=== PATIENT | female | born 2000 | race Hispanic/Latino ===

== ENCOUNTER 2020-09-13 01:53 | Emergency (ER) | payer BC ==
[~2020-09-13] VITALS: Ht 149.9 cm; Wt 54.4 kg
[2020-09-13] MEDS ORDERED: ONDANSETRON ODT8 MG PO (03:17)
[2020-09-13] MEDS ORDERED: CIPRO500 MG PO (03:17)
[2020-09-13] MEDS ORDERED: IBUPROFEN400 MG PO (03:18)
== END 2020-09-13 03:30 | disposition home or self-care (01) ==
LOC: FSED 02:15
DX: B34.9 Viral infection, unspecified (principal); N39.0 Urinary tract infection, site not specified; R50.9 Fever, unspecified; R05 Cough; J45.909 Unspecified asthma, uncomplicated
CPT/HCPCS: 99283